=== PATIENT | male | born 1990 | race Caucasian/White ===

== ENCOUNTER 2019-12-29 19:42 | Observation (INO) | payer OTHER ==
--- NOTE | 2019-12-29 20:25 | ER Document Report ---
ED Medical Screen (RME) - General Stated Complaint: SEVERE ABDOMINAL PAIN Time Seen by Provider: 12/29/19 20:19 Primary Care Provider: BRIAN ARORA MD [Primary Care Provider] - Follow up as needed - [facility] Notes: Patient is a 29-year-old male with no medical history who presents with right sided abdominal pain that began a couple hours ago. Patient reports chills, and weakness but denies nausea, vomiting, diarrhea, and fever. Patient has a history of a left inguinal hernia but denies any history of abdominal surgeries. Physical Exam - Vital signs Vitals: Temp Pulse Resp BP Pulse Ox 98.7 F 91 16 159/93 H 97 12/29/19 20:10 12/29/19 20:10 12/29/19 20:10 12/29/19 20:10 12/29/19 20:10 - Abdominal Distension: No distension Bowel sounds: Normal Tenderness: Tender - Diffusely Course - Re-evaluation Re-evalutation: I have greeted and performed a rapid initial assessment of this patient. A comprehensive ED assessment and evaluation of the patient, analysis of test results and completion of medical decision making process will be conducted by an additional ED providers. - Vital Signs Vital signs: Temp Pulse Resp BP Pulse Ox 98.7 F 91 16 159/93 H 97 12/29/19 20:10 12/29/19 20:10 12/29/19 20:10 12/29/19 20:10 12/29/19 20:10 Doctor's Discharge - Discharge Referrals: BRIAN ARORA MD [Primary Care Provider] - Follow up as needed
[2019-12-29 21:15] LABS: ABSOLUTE EOSINOPHILS # (AUTO) 0.1 10^3/uL (0.0-0.6); ABSOLUTE LYMPHOCYTES (AUTO) 1.2 10^3/uL (0.5-4.7); ABSOLUTE MONOCYTES (AUTO) 0.7 10^3/uL (0.1-1.4); ABSOLUTE NEUT (AUTO) 9.7 10^3/uL (1.7-8.2); BASOPHILS % (AUTO) 0.4 % (0-2); EOSINOPHILS % (AUTO) 0.9 % (0-6); HEMATOCRIT 47.9 % (37.9-51.0); HEMOGLOBIN 16.6 g/dL (13.5-17.0); LYMPHOCYTES % (AUTO) 9.9 % (13-45); MEAN CORPUSCULAR HEMOGLOBIN 31.3 pg (27.0-33.4); MEAN CORPUSCULAR HGB CONC 34.6 g/dL (32.0-36.0); MEAN CORPUSCULAR VOLUME 90 fl (80-97); PLATELET COUNT 270 10^3/uL (150-450); SEGMENTED NEUTROPHILS % (AUTO) 82.8 % (42-78); TOTAL CELLS COUNTED % (AUTO) 100 %; WHITE BLOOD COUNT 11.7 10^3/uL (4.0-10.5)
[2019-12-29 21:27] LABS: APPEARANCE,URINE CLEAR; BILIRUBIN,URINE NEGATIVE (NEGATIVE); COLOR,URINE YELLOW; GLUCOSE, URINE NEGATIVE (NEGATIVE); KETONES,URINE NEGATIVE (NEGATIVE); LEUKOCYTE ESTERASE,URINE NEGATIVE (NEGATIVE); NITRITE,URINE NEGATIVE (NEGATIVE); PROTEIN,URINE NEGATIVE (NEGATIVE); URINE SPECIFIC GRAVITY 1.017; UROBILINOGEN,URINE NEGATIVE mg/dL (<2.0)
[2019-12-29 21:40] LABS: ALBUMIN 4.9 g/dL (3.5-5.0); ALKALINE PHOSPHATASE 68 U/L (38-126); ANION GAP 11 (5-19); ASPARTATE AMINO TRANSFERASE 25 U/L (17-59); BILIRUBIN,DIRECT 0.2 mg/dL (0.0-0.4); BILIRUBIN,TOTAL 1.3 mg/dL (0.2-1.3); BLOOD UREA NITROGEN 17 mg/dL (7-20); CALCIUM 10.3 mg/dL (8.4-10.2); CARBON DIOXIDE 31 mmol/L (22-30); CHLORIDE 99 mmol/L (98-107); GLUCOSE 103 mg/dL (75-110); POTASSIUM 4.5 mmol/L (3.6-5.0); TOTAL PROTEIN 7.9 g/dL (6.3-8.2)
[2019-12-30] MEDS ORDERED: HYDROMORPHONE HCL INJ/PF 2 MG/ML AMPULE IV ONE (04:10)
[2019-12-30] MEDS ORDERED: NORMAL SALINE 1000 ML 1,000 ML IV ONE (04:10)
[2019-12-30] MEDS ORDERED: DIPHENHYDRAMINE HCL 50 MG/ML VIAL IV ONE (04:10)
[2019-12-30] MEDS ORDERED: METOCLOPRAMIDE HCL INJ/PF 10 MG/2 ML SDV IV ONE (04:10)
--- NOTE | 2019-12-30 04:14 | ER Document Report ---
ED General - General Chief Complaint: Lower Abdominal Pain Stated Complaint: SEVERE ABDOMINAL PAIN Time Seen by Provider: 12/29/19 20:19 Primary Care Provider: BRIAN ARORA MD [COMMUNITY BASED STAFF] - Follow up as needed Mode of Arrival: Ambulatory Information source: Patient Notes: Patient is a 29-year-old male coming in today with right lower quadrant abdominal pain. States symptoms started Monday afternoon out of the blue. Have progressively gotten worse. He is having some nausea. No vomiting. No fevers or chills. No previous medical history. - Related Data Allergies/Adverse Reactions: No Known Allergies Allergy (Unverified 12/30/19 04:37) Home Medications: sudafed, excedrin Past Medical History - Social History Smoking Status: Never Smoker Family History: None Review of Systems - Review of Systems Notes: Constitutional: No fevers. No chills. EENT: No eye redness. No eye pain. No ear pain. No sore throat. Cardiovascular: No chest pain. No palpitations. Respiratory: No cough. No shortness of breath. No respiratory distress. Gastrointestinal: Positive lower abdominal pain, positive for nausea Genitourinary: Atraumatic. No lesions. No pain. No discharge. Musculoskeletal: Atraumatic. No swelling. No deformities. Skin: No rash or lesions. Lymphatic: No swollen lymph nodes. Neurologic: No headache. No syncope. Psychiatric: No suicidal or homicidal ideation. Physical Exam - Vital signs Vitals: Temp Pulse Resp BP Pulse Ox 98.7 F 91 16 159/93 H 97 12/29/19 20:10 12/29/19 20:10 12/29/19 20:10 12/29/19 20:10 12/29/19 20:10 - Notes Notes: General: Well-developed, well-nourished. In no acute distress. Non-toxic appearing. Cardiac: Well-perfused. Regular rate and rhythm. No murmurs, rubs, or gallops. Pulmonary: No respiratory distress. No cyanosis. Bilateral lung fiels are clear to auscultation. Abdominal: Tenderness to palpation right lower quadrant. Abdomen is soft. Bowel sounds are present in all 4 quadrants. No guarding or rebound. No CVA t enderness. HEENT: Head is atraumatic. Conjunctivae not reddened. No tearing. PERRL. EOMI. Orbits atraumatic. No periorbital swelling or erythema. Oropharynx is without erythema, swelling, or exudates. Neck: Supple. No adenopathy. No meningismus. Dermatologic: Warm with good turgor. No rash. Atraumatic. Chest: Atraumatic. No chest wall tenderness to palpation. Musculoskeletal: Moves all extremities well. No range of motion deficits. no muscular or joint tenderness. No paraspinal muscle tenderness. no midline spinal tenderness or step-off. Genitourinary: Examination deferred Neurologic: No gross neurologic deficits. Psychiatric: Normal mood. Course - Re-evaluation Re-evalutation: 12/30/19 04:14 Patient is having headache as well as abdominal pain. He has a history of migraines. 12/30/19 06:08 CTA reveals acute uncomplicated appendicitis. Dr. Douglas notified. Will evaluate - Vital Signs Vital signs: Temp Pulse Resp BP Pulse Ox 98.5 F 99 15 142/83 H 95 12/30/19 03:52 12/30/19 03:52 12/30/19 03:52 12/30/19 03:52 12/30/19 03:52 - Laboratory Result Diagrams: 12/29/19 21:01 12/29/19 21:01 Laboratory results interpreted by me: 12/29/19 12/29/19 21:01 21:01 WBC 11.7 H Lymph % (Auto) 9.9 L Absolute Neuts (auto) 9.7 H Seg Neutrophils % 82.8 H Carbon Dioxide 31 H Calcium 10.3 H Discharge - Discharge Clinical Impression: Acute appendicitis Qualifiers: Acute appendicitis type: unspecified acute appendicitis type Qualified Code(s): K35.80 - Unspecified acute appendicitis Condition: Good Disposition: ADMITTED OBSERVATION Admitting Provider: Surgicalist Vamshi DOUGLAS Unit Admitted: Surgical Floor Referrals: BRIAN ARORA MD [COMMUNITY BASED STAFF] - Follow up as needed
--- NOTE | 2019-12-30 05:38 | RADIOLOGY REPORT (SQ) ---
EXAM DESCRIPTION: CT ABDOMEN PELVIS WITH IV CONTRAST COMPLETED DATE/TME: 12/30/2019 05:18 CLINICAL HISTORY: 29 years, Male, pt states 2 hour hx of tiredness, chills, body aches rlq pain TECHNIQUE: Contiguous axial CT images of the abdomen and pelvis. Intravenous contrast: Present. Oral contrast: Absent. DLP 1463 mGy-cm. This exam was performed according to our departmental dose-optimization program, which includes automated exposure control, adjustment of the mA and/or kV according to patient size and/or use of iterative reconstruction technique. COMPARISON: None. FINDINGS: Lower chest: Partially imaged. Lung bases: Bibasilar subsegmental atelectasis. Cardiac apex: Unremarkable. Solid abdominal viscera: Liver: Unremarkable. Gallbladder: Unremarkable. Pancreas: Unremarkable. Spleen: Unremarkable. Adrenal glands: Unremarkable. Right kidney: No hydronephrosis. Left kidney: No hydronephrosis. Urinary bladder: Unremarkable. Abdominal aorta: Unremarkable. Peritoneal: Free fluid: Trace Free air: None. Other: No pathologic sized lymph nodes in the upper abdomen. Bowel: Stomach: Unremarkable. Small bowel: Unremarkable. Appendix: Measures up to 8 mm in diameter with mild surrounding inflammatory changes and fluid. No evidence of a perforation or abscess/phlegmon formation. Colon: Unremarkable. Rectum: Unremarkable. Prostate: Unremarkable. Bones: Unremarkable. IMPRESSION: Acute uncomplicated appendicitis. Trace amount of free fluid within the pelvis.
[2019-12-30] MEDS ORDERED: PIPERACILLIN/TAZOBACTAM 3.375 GM VIAL IV ONE (06:06)
[2019-12-30] MEDS ORDERED: RINGERS SOLUTION,LACTATED 1,000 ML IV PRN (06:25)
--- NOTE | 2019-12-30 06:31 | PDOC H&P ---
History of Present Illness Admission Date/PCP: CHRIS MOSS MD History of Present Illness: ALFONSO TELLO is a 29 year old male Presents emergency department running of 1 day history of abdominal pain right lower quadrant anorexia. No change in bowel function. Patient seen the emerge ncy department where he was found to have right lower quadrant tenderness, leukocytosis, and CT scan findings consistent with acute appendicitis. Surgery was consulted, patient admitted to the surgical service for definitive management. Past Medical History Medical History: None Past Surgical History Past Surgical History: Reports: None Social History Information Source: Patient Smoking Status: Never Smoker Electronic Cigarette use?: No Frequency of Alcohol Use: Rare Hx Recreational Drug Use: No Hx Prescription Drug Abuse: No Family History Family History: None Parental Family History Reviewed: No Children Family History Reviewed: No Sibling(s) Family History Reviewed.: No Medication/Allergy Allergies/Adverse Reactions: No Known Allergies Allergy (Unverified 12/30/19 04:37) Review of Systems Constitutional: PRESENT: as per HPI Eyes: ABSENT: visual disturbances Ears: ABSENT: hearing changes Cardiovascular: ABSENT: chest pain, dyspnea on exertion, edema, orthropnea, palpitations Respiratory: ABSENT: cough, hemoptysis Gastrointestinal: ABSENT: abdominal pain, constipation, diarrhea, hematemesis, hematochezia, nausea, vomiting Genitourinary: ABSENT: dysuria, hematuria Musculoskeletal: ABSENT: joint swelling Integumentary: ABSENT: rash, wounds Neurological: ABSENT: abnormal gait, abnormal speech, confusion, dizziness, focal weakness, syncope Endocrine: ABSENT: cold intolerance, heat intolerance, polydipsia, polyuria Hematologic/Lymphatic: ABSENT: easy bleeding, easy bruising Physical Exam Vital Signs: Temp Pulse Resp BP Pulse Ox 98.5 F 99 15 142/83 H 95 12/30/19 03:52 12/30/19 03:52 12/30/19 03:52 12/30/19 03:52 12/30/19 03:52 Intake & Output 12/28/19 12/29/19 12/30/19 06:59 06:59 06:59 Intake Total 1000 Balance 1000 Weight 104.6 kg General appearance: PRESENT: no acute distress Head exam: PRESENT: normocephalic Eye exam: PRESENT: EOMI Mouth exam: PRESENT: dry mucosa Neck exam: PRESENT: full ROM Respiratory exam: PRESENT: clear to auscultation tony Cardiovascular exam: PRESENT: RRR Pulses: PRESENT: normal carotid pulses, normal radial pulses, normal femoral pulses, normal dorsalis pedis pul GI/Abdominal exam: PRESENT: other - Tender right mid to right lower quadrant with guarding to deep palpation Rectal exam: PRESENT: deferred Extremities exam: PRESENT: full ROM Musculoskeletal exam: PRESENT: full ROM Neurological exam: PRESENT: oriented to person, oriented to place, oriented to time, oriented to situation Psychiatric exam: PRESENT: appropriate affect Skin exam: PRESENT: dry Results Laboratory Results: 12/29/19 21:12/29/19 21:01 12/29/19 12/29/19 12/29/19 21:01 21:01 21:01 WBC 11.7 H RBC 5.30 Hgb 16.6 Hct 47.9 MCV 90 MCH 31.3 MCHC 34.6 RDW 13.0 Plt Count 270 Seg Neutrophils % 82.8 H Sodium 140.9 Potassium 4.5 Chloride 99 Carbon Dioxide 31 H Anion Gap 11 BUN 17 Creatinine 1.01 Est GFR ( Amer) > 60 Glucose 103 Calcium 10.3 H Total Bilirubin 1.3 AST 25 Alkaline Phosphatase 68 Total Protein 7.9 Albumin 4.9 Lipase 49.1 Urine Color YELLOW Urine Appearance CLEAR Urine pH 6.0 Ur Specific [place] 1.017 Urine Protein NEGATIVE Urine Glucose (UA) NEGATIVE Urine Ketones NEGATIVE Urine Blood NEGATIVE Urine Nitrite NEGATIVE Ur Leukocyte Esterase NEGATIVE Urine RBC (Auto) 1 Impressions: Abdomen/Pelvis CT 12/30/19 04:10 IMPRESSION: Acute uncomplicated appendicitis. Trace amount of free fluid within the pelvis. Assessment & Plan - Diagnosis (1) Acute appendicitis Qualifiers: Acute appendicitis type: unspecified acute appendicitis type Qualified Co de(s): K35.80 - Unspecified acute appendicitis Is this a current diagnosis for this admission?: Yes Plan: Impression: Acute appendicitis based on clinical history, physical exam laboratory profile and CT scan findings showing enlarged appendix, periappendiceal inflammatory changes and fluid in pelvis Recommendations: 1. N.p.o., IV fluids, intravenous antibiotics; rapid Covid test check 2. We will set patient up for interval laparoscopic, possible open appendectomy today, December 29. I explained to the patient that Dr. Gaudencio Slaughter will be performing the operation. - Time Time Spent: 30 to 50 Minutes Critical Time spent with patient: 15-24 minutes Smoking Cessation Education: 3 to 10 minutes Medications reviewed and adjusted accordingly: Yes Anticipated Discharge Disposition: Home, Self Care Anticipated Discharge Timeframe: within 24 hours
[2019-12-30] MEDS ORDERED: FENTANYL CITRATE INJ/PF 250 MCG/5 ML AMPULE ONE (06:59)
[2019-12-30] MEDS ORDERED: MIDAZOLAM 2 MG/2 ML INJ ONE (06:59)
[2019-12-30] MEDS ORDERED: SUGAMMADEX SODIUM 200 MG/2 ML SDV IV ONE (06:59)
[2019-12-30] MEDS ORDERED: PROPOFOL INJ 200 MG/20 ML VIAL IV ONE (07:00)
[2019-12-30] MEDS ORDERED: FENTANYL CITRATE INJ/PF 100 MCG/2 ML AMPUL ONE (10:22)
[2019-12-30] MEDS ORDERED: KETOROLAC TROMETHAMINE 60 MG/2 ML SDV ONE (10:22)
[2019-12-30] MEDS ORDERED: ONDANSETRON HCL INJ/PF 4 MG/2 ML SDV ONE (10:23)
[2019-12-30] MEDS ORDERED: DEXAMETHASONE SOD PHOSPHATE INJ 4 MG/1 ML VIAL ONE (10:23)
[2019-12-30] MEDS ORDERED: BUPIVACAINE HCL 0.25 % INJ/PF (2.5 MG/1 ML) 30 ML VIAL ONE (11:12)
[2019-12-30] MEDS ORDERED: ONDANSETRON HCL INJ/PF 4 MG/2 ML SDV IV PRN (11:38)
[2019-12-30] MEDS ORDERED: DIPHENHYDRAMINE HCL 50 MG/ML VIAL IV PRN (11:38)
[2019-12-30] MEDS ORDERED: PROMETHAZINE HCL INJ 25 MG/1 ML VIAL IV PRN (11:38)
[2019-12-30] MEDS ORDERED: FENTANYL CITRATE INJ/PF 100 MCG/2 ML AMPUL IV PRN ×3 (11:38)
[2019-12-30] MEDS ORDERED: MORPHINE SULFATE 10 MG/ML INJ IV PRN (11:38)
[2019-12-30] MEDS ORDERED: MEPERIDINE HCL/PF INJ 25 MG/1 ML DISP.SYRIN IV PRN (11:38)
[2019-12-30] MEDS ORDERED: HYDROCODONE/ACETAMINOPHEN 10-325 MG TABLET PO PRN (12:12)
--- NOTE | 2019-12-30 12:17 | Operative Report ---
Nonrecallable Operative Report DATE OF SURGERY: 12/30/19 PREOPERATIVE DIAGNOSIS: Acute appendicitis POSTOPERATIVE DIAGNOSIS: Acute nonperforated appendicitis OPERATION: Laparoscopic appendectomy SURGEON: ELVIN THOMPSON ANESTHESIA: GA TISSUE REMOVED OR ALTERED: Appendix COMPLICATIONS: None apparent ESTIMATED BLOOD LOSS: Minimal PROCEDURE: Drains/implants: None. Procedure in detail: After informed consent was obtained, the patient was brought to the operating room and laid in the supine position. The area of the abdomen was prepped and draped in a normal sterile fashion. A supraumbilical incision was created with a 15 blade scalpel. Dissection was carried through the subcutaneous tissues using sharp and blunt dissection. The cicatrix was identified, grasped with a Adry clamp, and retracted upwards. The linea alba fascia was incised sharply, the abdomen was entered sharply. The balloon trocar was inserted, and pneumoperitoneum was achieved. A suprapubic 5 mm port was then placed under direct laparoscopic visualization. Another left lower quadrant trocar was placed in similar fashion. Atraumatic graspers were placed through the 5 mm ports. The appendix was identified in the right lower quadrant. It was inflamed and injected, however it did not appear perforated. The mesoappendix was taken down using the harmonic scalpel. The base of the appendix was encircled using PDS Endoloops x2. The appendix was then amputated using the harmonic scalpel. The appendix was placed into an Endo Catch bag, and pulled out through the umbilicus. The camera was reinserted. The right lower quadrant was inspected. It was found to be hemostatic. There was a small amount of seropurulent fluid seen within the pelvis. This was suctioned. No irrigation was used. After this was completed, the 5 mm trochars were removed under direct laparoscopic visualization. No bleeding was noted. The supraumbilical trocar was removed, and pneumoperitoneum was relieved. The supraumbilical fascia was closed using 0 Vicryl suture in [id number] fashion. The overlying skin was closed using 4-0 Vicryl Rapide suture in subcuticular fashion. Dressings were placed, and the procedure was concluded. All sponge, instrument, and needle counts were correct x2. Condition: Stable.
[2019-12-30] MEDS ORDERED: PIPERACILLIN SODIUM/TAZOBACTAM 3.375 GM in NORMAL SALINE 100 ML IV SCH (13:00)
[2019-12-30] MEDS ORDERED: HYDROCODONE/ACETAMINOPHEN 10-325 MG TABLET ONE (13:03)
--- NOTE | 2019-12-30 14:26 | PDOC DISCHARGE SUMMARY ---
General - Admit/Disc Date/PCP Admission Date/Primary Care Provider: 12/30/19 07:38 CHRIS MOSS MD Discharge Date: 12/30/19 - Discharge Diagnosis Final Diagnosis: Acute nonperforated appendicitis - Assessment Summary: 29-year-old male admitted to hospital today for acute appendicitis. The patient underwent laparoscopic appendectomy, where nonperforated acute appendicitis was identified. The patient did very well after surgery. He was eating, ambulating, his pain was controlled with oral pain medications, and on postoperative day #0, it was felt that he had reached maximal hospital benefit. At this time he is medically fit for discharge. - Additional Information Resuscitation Status: Full Code Discharge Diet: As Tolerated Discharge Activity: Balance Activity w/Rest, No Lifting Over 10 Pounds, No Lifting/Push/Pulling, No tub bath Referrals: ELVIN THOMPSON MD [ACTIVE STAFF] - 01/13/20 8:15 am Prescriptions: Hydrocodone/Acetaminophen [[place] 10-325 mg Tablet] 1 tab PO Q6HP PRN #14 tablet PRN Reason: For Pain Home Medications: Hydrocodone/Acetaminophen [[place] 10-325 mg Tablet] 1 tab PO Q6HP PRN #14 tablet 12/30/19 Additional Information: Discharge home. Diet as tolerated. Activity no lifting greater than 10 pounds x 2 weeks. Follow-up with [facility] in 7 to 10 days. [place] 10/3 2 5 mg p.o. every 6 hours as needed for pain. Okay to shower starting on Monday. No tub baths or swimming pools x2 weeks. Call [facility] immediately with new fevers, chills, worsening abdominal pain, or other suspicious symptoms. History of Present Illiness History of Present Illness: ALFONSO TELLO is a 29 year old male Physical Exam Vital Signs: Temp Pulse Resp BP Pulse Ox 98.1 F 84 16 148/81 H 94 12/30/19 13:25 12/30/19 13:40 12/30/19 13:40 12/30/19 13:40 12/30/19 13:40 Intake & Output 12/29/19 12/30/19 12/31/19 06:59 06:59 06:59 Intake Total 1000 250 Output Total 137 147 Balance 863 103 Weight 104.6 kg Results Laboratory Results: WBC 11.7 10^3/uL (4.0-10.5) H 12/29/19 21: RBC 5.30 10^6/uL (4.35-5.55) 12/29/19 21: Hgb 16.6 g/dL (13.5-17.0) 12/29/19 21: Hct 47.9 % (37.9-51.0) 12/29/19: MCV 90 fl (80-97) 12/29/19: MCH 31.3 pg (27.0-33.4) 12/29/19: MCHC 34.6 g/dL (32.0-36.0) 12/29/19: RDW 13.0 % (11.5-14.0) 12/29/19: Plt Count 270 10^3/uL (150-450) 12/29/19 21: Lymph % (Auto) 9.9 % (13-45) L 12/29/19: [place] % (Auto) 6.0 % (3-13) 12/29/19 21: Eos % (Auto) 0.9 % (0-6) 12/29/19 21: Baso % (Auto) 0.4 % (0-2) 12/29/19 21: Absolute Neuts (auto) 9.7 10^3/uL (1.7-8.2) H 12/29/19: Absolute Lymphs (auto) 1.2 10^3/uL (0.5-4.7) 12/29/19 21: Absolute Monos (auto) 0.7 10^3/uL (0.1-1.4) 12/29/19 21: Absolute Eos (auto) 0.1 10^3/uL (0.0-0.6) 12/29/19: Absolute Basos (auto) 0.0 10^3/uL (0.0-0.2) 12/29/19 21: Seg Neutrophils % 82.8 % (42-78) H 12/29/19 21: Sodium 140.9 mmol/L (137-145) 12/29/19 21: Potassium 4.5 mmol/L (3.6-5.0) 12/29/19 21: Chloride 99 mmol/L (98-107) 12/29/19 21:01 Carbon Dioxide 31 mmol/L (22-30) H 12/29/19 21:01 Anion Gap 11 (5-19) 12/29/19 21:01 BUN 17 mg/dL (7-20) 12/29/19 21:01 Creatinine 1.01 mg/dL (0.52-1.25) 12/29/19 21:01 Est GFR ( Amer) > 60 (>60) 12/29/19 21:01 Est GFR (MDRD) Non-Af > 60 (>60) 12/29/19 21: Glucose 103 mg/dL (75-110) 12/29/19 21: Calcium 10.3 mg/dL (8.4-10.2) H 12/29/19 21:01 Total Bilirubin 1.3 mg/dL (0.2-1.3) 12/29/19 21: Direct Bilirubin 0.2 mg/dL (0.0-0.4) 12/29/19 21:01 Neonat Total Bilirubin Not Reportable 12/29/19 21:01 Neonat Direct Bilirubin Not Reportable 12/29/19 21:01 Neonat Indirect Bili Not Reportable 12/29/19 21:01 AST 25 U/L (17-59) 12/29/19 21:01 ALT 22 U/L (<50) 12/29/19 21:01 Alkaline Phosphatase 68 U/L (38-126) 12/29/19 21:01 Total Protein 7.9 g/dL (6.3-8.2) 12/29/19 21: Albumin 4.9 g/dL (3.5-5.0) 12/29/19 21: Lipase 49.1 U/L (23-300) 12/29/19 21:01 Urine Color YELLOW 12/29/19 21: Urine Appearance CLEAR 12/29/19 21: Urine pH 6.0 (5.0-9.0) 12/29/19 21: Ur Specific [place] 1.017 12/29/19 21: Urine Protein NEGATIVE mg/dL (NEGATIVE) 12/29/19 21: Urine Glucose (UA) NEGATIVE mg/dL (NEGATIVE) 12/29/19 21:01 Urine Ketones NEGATIVE mg/dL (NEGATIVE) 12/29/19 21:01 Urine Blood NEGATIVE (NEGATIVE) 12/29/19 21:01 Urine Nitrite NEGATIVE (NEGATIVE) 12/29/19 21:01 Urine Bilirubin NEGATIVE (NEGATIVE) 12/29/19 21:01 Urine Urobilinogen NEGATIVE mg/dL (<2.0) 12/29/19 21:01 Ur Leukocyte Esterase NEGATIVE (NEGATIVE) 12/29/19 21:01 Urine RBC (Auto) 1 /HPF 12/29/19 21:01 Urine Mucus (Auto) RARE /LPF 12/29/19 21:01 Urine Ascorbic Acid NEGATIVE (NEGATIVE) 12/29/19 21:01 COVID-19 Source Cancelled 12/30/19 06:39 COVID-19 ([facility]IND[facility]) Cancelled 12/30/19 06:39 Influenza A (RT-PCR) NEGATIVE (NEGATIVE) 12/30/19 06:39 Influenza B (RT-PCR) NEGATIVE (NEGATIVE) 12/30/19 06:39 RSV (RT-PCR) NEGATIVE (NEGATIVE) 12/30/19 06:39 SARS-CoV-2 Rap RNA(RT-PCR) NEGATIVE (NEGATIVE) 12/30/19 06:39 Impressions: Abdomen/Pelvis CT 12/30/19 04:10 IMPRESSION: Acute uncomplicated appendicitis. Trace amount of free fluid within the pelvis.
[2019-12-30 15:30] VITALS: BP 129/77
[2019-12-30] MEDS ORDERED: IBUPROFEN 800 MG TABLET PO SCH (17:00)
== END 2019-12-30 15:32 | disposition home or self-care (01) ==
LOC: ER 19:42 → EH 12-30 07:38 → ASU 1 12-30 07:38 → UNDOADMOB 12-30 07:38 → INOR 12-30 07:39 → ASU 1 12-30 15:32 → UNDODISOB 12-30 15:32
PROVIDERS: ADMIT Surgery; ATTEND Obstetrics & Gynecology
DX: K35.80 Unspecified acute appendicitis (principal); Z20.828 Contact with and (suspected) exposure to other viral communicable diseases; R51.9 Headache, unspecified; Z87.19 Personal history of other diseases of the digestive system
CPT/HCPCS: 99285; 96361; 96375; 96365; 36415; 83690; 85025; 0241U ×4; 80053; 81001; 88304 ×2; 74177; 00840; 44970; G0378; J2250; J1100; J1200; J1885; J3010; J2765; J1170; J2405; J7050; J7030; J7120; J2704; J2543; C9803; 840; J3490